=== PATIENT | female | born 1985 | race Caucasian/White ===

== ENCOUNTER → 2017-11-28 | Outpatient (CLI) | payer MEDICARE, MEDICAID ==
[~2017-11-28] MED LIST: AUGMENTIN 875875 MG PO; BACTROBAN22 GM TP; IRON325 PO; MACROBID 100 M100 M1 PO; SPRINTEC1 EACH PO
== END ==
LOC: M.ULTRA 12:54
DX: N92.0 Excessive and frequent menstruation with regular cycle (principal); N93.8 Other specified abnormal uterine and vaginal bleeding

== ENCOUNTER 2017-12-27 19:15 | Emergency (ER) | payer MEDICARE, MEDICAID ==
[~2017-12-27] VITALS: Ht 154.9 cm; Wt 54.0 kg
[~2017-12-27 19:15] MED LIST changes: -IRON325 PO; -MACROBID 100 M100 M1 PO; -SPRINTEC1 EACH PO
[2017-12-27 19:31] LABS: URINE BILIRUBIN NEGATIVE (Negative); URINE BLOOD 3+ (Negative); URINE CLARITY CLEAR; URINE COLOR STRAW; URINE GLUCOSE-RANDOM NEGATIVE (Negative); URINE KETONES NEGATIVE (Negative); URINE NITRITE-REFLEX NEGATIVE (Negative); URINE PROTEIN NEGATIVE (Negative); URINE SPECIFIC GRAVITY <= 1.005 (1.005-1.030); URINE UROBILINOGEN 0.2 E.U./dl (0.2-1.0)
[2017-12-27] MEDS ORDERED: SPRINTEC1 EACH PO (19:31)
[2017-12-27] MEDS ORDERED: IRON325 PO (19:31)
[2017-12-27 19:32] LABS: URINE LEUKOCYTES-REFLEX 3+ (Negative)
[2017-12-27 19:40] LABS: MUCUS None Seen strn/LPF (None Seen); SQUAMOUS >10 Many /LPF (0-3)
[2017-12-27 19:41] LABS: BACTERIA-REFLEX 1-9 Few /HPF (None Seen); CASTS None Seen /LPF (None Seen); CRYSTALS None Seen /LPF (None Seen); URINE RBC >20 Many /HPF (0-2); URINE WBC-REFLEX 6-15 Few /HPF (0-5)
[2017-12-27] MEDS ORDERED: MACROBID 100 M100 M1 PO (20:20)
[2017-12-27 20:42] VITALS: BP 109/64
== END 2017-12-27 20:44 | disposition home or self-care (01) ==
LOC: M.ERS 19:15
PROVIDERS: Nurse Practitioner Family
DX: N84.1 Polyp of cervix uteri (principal); L25.9 Unspecified contact dermatitis, unspecified cause; N39.0 Urinary tract infection, site not specified; Z86.2 Personal history of diseases of the blood and blood-forming organs and certain disorders involving the immune mechanism

== ENCOUNTER 2019-04-04 18:28 | Emergency (ER) | payer MEDICARE, MEDICAID ==
[~2019-04-04] VITALS: Ht 154.9 cm; Wt 54.4 kg
[~2019-04-04 18:28] MED LIST changes: +IRON325 PO; +MACROBID 100 M100 M1 PO; +SPRINTEC1 EACH PO
[2019-04-04 19:05] LABS: URINE BILIRUBIN NEGATIVE (Negative); URINE BLOOD 3+ (Negative); URINE GLUCOSE-RANDOM 1+ (Negative); URINE KETONES 1+ (Negative); URINE LEUKOCYTES-REFLEX 2+ (Negative); URINE NITRITE-REFLEX POSITIVE (Negative); URINE PROTEIN 3+ (Negative)
[2019-04-04 19:06] LABS: URINE CLARITY CLOUDY; URINE COLOR RED
[2019-04-04 19:07] LABS: BACTERIA-REFLEX None Seen /HPF (None Seen); CASTS None Seen /LPF (None Seen); CRYSTALS None Seen /LPF (None Seen); SQUAMOUS 0-3 Few /LPF (0-3); URINE RBC >20 Many /HPF (0-2); URINE WBC-REFLEX 0-5 Rare /HPF (0-5)
[2019-04-04 19:27] LABS: ABSOLUTE BASOPHILS 0.1 thou/uL (0.0-0.2); ABSOLUTE EOSINOPHILS 0.3 thou/uL (0.0-0.7); ABSOLUTE LYMPHOCYTES 1.6 thou/uL (0.8-5.3); ABSOLUTE MONOCYTES 0.6 thou/uL (0.0-1.2); ABSOLUTE NEUTROPHILS 7.9 thou/uL (1.6-8.1); BASOPHILS 0.8 %; EOSINOPHILS 2.6 %; HEMOGLOBIN 8.5 gm/dL (12.0-15.0); LYMPHOCYTES 15.6 %; MCH 20.7 pg (26.0-34.0); MCHC 31.3 g/dL (28.0-37.0); MCV 65.9 fL (80.0-100.0); MONOCYTES 5.5 %; MPV 8.7 fl. (7.2-11.1); NUCLEATED RBCS 0 /100WBC; PLATELET COUNT* 304 thou/uL (150-400); POLYS 75.5 %; RBC 4.09 mil/uL (4.20-5.00); RDW-CV 18.3 % (10.5-14.5); WBC 10.5 thou/uL (4.0-11.0)
[2019-04-04 19:36] LABS: APTT 28.8 Seconds (25.0-31.3); CALCIUM 8.4 mg/dL (8.5-10.1); CREATININE 0.7 mg/dL (0.6-1.3); POTASSIUM 4.5 mmol/L (3.5-5.1); PROTIME 10.6 Seconds (9.20-11.50)
[2019-04-04 19:41] LABS: ALBUMIN 3.6 g/dL (3.4-5.0); TOTAL BILIRUBIN 0.3 mg/dL (<0.1-1.0); TOTAL PROTEIN 7.3 g/dL (6.4-8.2)
[2019-04-04 19:46] LABS: PLATELET ESTIMATE ADEQUATE
[2019-04-04 19:48] LABS: ANISOCYTOSIS 2+; HYPOCHROMASIA 2+; MICROCYTES 2+
[2019-04-04] MEDS ORDERED: MEDROXYPROGESTE10 MG PO (20:29)
[2019-04-04] MEDS ORDERED: KEFLEX500 M1 PO (20:35)
[2019-04-04 20:48] VITALS: BP 110/60
== END 2019-04-04 20:49 | disposition home or self-care (01) ==
LOC: M.ERS 18:28
PROVIDERS: Nurse Practitioner Family
DX: D64.9 Anemia, unspecified (principal); N39.0 Urinary tract infection, site not specified

== ENCOUNTER 2019-04-07 20:40 | Emergency (ER) | payer MEDICARE, MEDICAID ==
[~2019-04-07] VITALS: Ht 154.9 cm; Wt 54.4 kg
[~2019-04-07 20:40] MED LIST changes: +KEFLEX500 M1 PO; +MEDROXYPROGESTE10 MG PO
[2019-04-07 22:39] LABS: ABSOLUTE BASOPHILS 0.1 thou/uL (0.0-0.2); ABSOLUTE EOSINOPHILS 0.2 thou/uL (0.0-0.7); ABSOLUTE LYMPHOCYTES 1.9 thou/uL (0.8-5.3); ABSOLUTE MONOCYTES 0.5 thou/uL (0.0-1.2); BASOPHILS 1.2 %; EOSINOPHILS 3.2 %; HEMOGLOBIN 8.2 gm/dL (12.0-15.0); LYMPHOCYTES 24.6 %; MCH 20.5 pg (26.0-34.0); MCHC 31.3 g/dL (28.0-37.0); MCV 65.4 fL (80.0-100.0); MONOCYTES 6.9 %; MPV 8.4 fl. (7.2-11.1); NUCLEATED RBCS 0 /100WBC; PLATELET COUNT* 319 thou/uL (150-400); POLYS 64.1 %; RBC 3.98 mil/uL (4.20-5.00); RDW-CV 19.4 % (10.5-14.5); WBC 7.8 thou/uL (4.0-11.0)
[2019-04-07 22:46] LABS: CALCIUM 8.5 mg/dL (8.5-10.1); CREATININE 0.8 mg/dL (0.6-1.3); POTASSIUM 4.1 mmol/L (3.5-5.1)
[2019-04-07 22:50] LABS: ALBUMIN 3.9 g/dL (3.4-5.0); TOTAL BILIRUBIN 0.3 mg/dL (<0.1-1.0); TOTAL PROTEIN 7.7 g/dL (6.4-8.2)
[2019-04-07] MEDS ORDERED: PROVERA10 MG PO (23:31)
[2019-04-07 23:40] VITALS: BP 110/60
[2019-04-08 01:16] LABS: HYPOCHROMASIA 2+; PLATELET ESTIMATE ADEQUATE
[2019-04-08 01:17] LABS: ANISOCYTOSIS 1+
[2019-04-08 01:18] LABS: MICROCYTES 3+; OVALOCYTES Occasional; TARGET CELLS Occasional
== END 2019-04-07 23:40 | disposition home or self-care (01) ==
LOC: M.ERS 20:40
PROVIDERS: Family Medicine
DX: N93.8 Other specified abnormal uterine and vaginal bleeding (principal); Z86.2 Personal history of diseases of the blood and blood-forming organs and certain disorders involving the immune mechanism